=== PATIENT | male | born 1970 ===

== ENCOUNTER 2019-03-21 09:18 | Outpatient (CLI) | payer MEDICAID ==
[2019-03-21] MEDS ORDERED: GINSENG100 MG PO (12:21)
[2019-03-21] MEDS ORDERED: METOPROLOL SUCC25 MG ORAL (12:21)
[2019-03-21] MEDS ORDERED: METFORMIN HCL1000 M1 ORAL (12:21)
[2019-03-21] MEDS ORDERED: GLYBURIDE5 MG PO (12:21)
[2019-03-21] MEDS ORDERED: ASPIRIN EC81 MG ORAL (12:21)
[2019-03-21] MEDS ORDERED: OMEGA 3 1,0001 EACH PO (12:21)
[2019-03-21] MEDS ORDERED: VITAMIN B-12500 MCG ORAL (12:21)
[2019-03-21] MEDS ORDERED: SIMVASTATIN20 MG ORAL (12:21)
[2019-03-21 12:22] VITALS: BP 127/67
--- NOTE | 2019-03-21 21:00 | Consultation ---
DATE OF CONSULTATION: 03/21/2019 CONSULTING PHYSICIAN: Chiki Galindo M.D. CHIEF COMPLAINT: Referral for screening colonoscopy. PAST MEDICAL HISTORY: Diabetes, hypertension, and hypercholesterolemia. PAST SURGICAL HISTORY: None. MEDICATIONS: See medication reconciliation list. FAMILY HISTORY: Father had colon cancer at age 80, mother had diabetes. SOCIAL HISTORY: The patient denies any tobacco, alcohol, or drug abuse. ALLERGIES: No known allergies. REVIEW OF SYSTEMS: A 10-point review of systems was performed and and is grossly negative. PHYSICAL EXAMINATION: VITAL SIGNS: Temperature 98, blood pressure 127/67, pulse 58, and respirations 20. Height is 5 feet 11 inches. Weight is 237. HEENT: Normocephalic and atraumatic. Sclerae anicteric. NECK: Supple. No evidence of obvious lymphadenopathy. CARDIOVASCULAR: Regular rate and rhythm. Plus S1 and S2. No obvious murmur. LUNGS: Clear to auscultation bilaterally. ABDOMEN: Positive bowel sounds. Soft and nontender. No rebound. No guarding. No peritoneal sign. EXTREMITIES: No cyanosis. No clubbing. No edema. ASSESSMENT AND PLAN: This is a 48-year-old male, who was referred for screening colonoscopy. The patient was informed that his screening will start at age 49 as it is covered by insurance at age 49. Given he is asymptomatic, we will wait until he is age 49. The patient to come back and for colonoscopy. Chiki Galindo M.D. DR: SUNSHINE JOB#: [id number] CC:
== END 2019-03-21 11:18 | disposition home or self-care (01) ==
LOC: PAN 09:18
DX: Z01.818 Encounter for other preprocedural examination (principal); E11.9 Type 2 diabetes mellitus without complications; I10 Essential (primary) hypertension; E78.00 Pure hypercholesterolemia, unspecified
CPT/HCPCS: G0463